=== PATIENT | female | born 1970 | race Hispanic/Latino ===

== ENCOUNTER → 2022-02-03 | Outpatient (CLI) | payer OTHER, MEDICARE ==
[~2022-02-03] MED LIST: IOHEXOL 350 MG/ML 100ML INFUS..BTL IV ONE
== END | disposition home or self-care (01) ==
LOC: RAH 08:56
PROVIDERS: ATTEND Student in an Organized Health Care Education/Training Program
DX: K80.81 Other cholelithiasis with obstruction (principal); K76.0 Fatty (change of) liver, not elsewhere classified; K44.9 Diaphragmatic hernia without obstruction or gangrene; M47.815 Spondylosis without myelopathy or radiculopathy, thoracolumbar region
CPT/HCPCS: 74178; Q9967